=== PATIENT | female | born 1995 | race Caucasian/White ===

== ENCOUNTER 2024-03-25 23:10 | Outpatient (BNV) | payer MEDICAID, SELFPAY | END 2024-04-08 10:27 | PROVIDERS: Admitting Provider Psychiatry & Neurology Psychiatry; Visit Provider Internal Medicine Cardiovascular Disease | DX: Z13.6 Encounter for screening for cardiovascular disorders (principal) | CPT/HCPCS: 93010 ==

== ENCOUNTER 2024-03-25 23:10 | Inpatient (IN) | payer MEDICAID, SELFPAY ==
[2024-03-25 23:40] VITALS: BP 139/86; PULSE 92; RESP 16; TEMP 36.9; O2SAT 98
[2024-03-26] MEDS: Acetaminophen 325 MG TABLET 650 MG PO (00:01)
[2024-03-26] MEDS: hydrOXYzine HCL 25 MG TABLET PO ×3 (00:12→20:45)
[2024-03-26 00:25] VITALS: BMI 30.9
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
[2024-03-26 07:57] VITALS: BP 120/76; PULSE 63; TEMP 36.9; O2SAT 98
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
[2024-03-26] MEDS: Flu Vacc TS2024-25(6mos up)/PF 0.5 ML SYRINGE IM (12:04)
[2024-03-26] MEDS: OLANZapine 5 MG TABLET PO (13:03)
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
[2024-03-26 20:00] VITALS: BP 141/72; PULSE 110; RESP 18; TEMP 36.9; O2SAT 97
[2024-03-26] MEDS: LORazepam 1 MG TABLET PO (23:05)
[2024-03-27 08:31] VITALS: BP 135/75; PULSE 92; RESP 16; TEMP 36.6; O2SAT 97
[2024-03-27 09:01] LABS: Estimated Average Glucose 103 mg/dL; Hemoglobin A1C 119.6058 umol/L; Hemoglobin A1c % 5.2 % (<6.0); Total Hemoglobin (HGBA1C) 3631.6015 umol/L
[2024-03-27 09:17] LABS: Alanine Aminotransferase 14 U/L (0-31); Albumin Level 4.3 g/dL (3.5-5.0); Anion Gap 11 (12-20); Aspartate Amino Transferase 28 U/L (5-31); Bilirubin Total 0.6 mg/dL (0.0-1.0); Blood Urea Nitrogen 9 mg/dL (9-16); Calcium 9.3 mg/dL (8.4-10.2); Carbon Dioxide 26 mmol/L (22-29); Chloride 104 mmol/L (96-108); Cholesterol 144 mg/dL (<200); Estimated Glomerular Filt Rate > 60; Glucose Random 110 mg/dL (60-115); HDL Cholesterol 59 mg/dL (>40); LDL Cholesterol Calculated 65 mg/dL (<100); Potassium 3.8 mmol/L (3.3-5.1); Sodium 137 mmol/L (135-145); Total Protein 7.4 g/dL (6.5-8.0); Triglycerides 103 mg/dL (<150)
[2024-03-27 09:22] LABS: Alkaline Phosphatase 44 U/L (39-117)
[2024-03-27] MEDS: OLANZapine 5 MG TABLET PO (14:33)
[2024-03-27] MEDS: LORazepam 1 MG TABLET PO (14:33)
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
[2024-03-27 20:00] VITALS: BP 142/61; PULSE 90; RESP 18; TEMP 37.6; O2SAT 98
[2024-03-27] MEDS: hydrOXYzine HCL 25 MG TABLET PO (21:58)
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
[2024-03-28 08:00] VITALS: BP 133/80; PULSE 83; TEMP 37.2; O2SAT 96
[2024-03-28] MEDS: hydrOXYzine HCL 25 MG TABLET PO (17:20)
[2024-03-28 19:43] VITALS: BP 153/83; PULSE 86; RESP 18; TEMP 36.6; O2SAT 95
--- NOTE | 2024-03-29 06:04 | PC.NURSE ---
Early in shift room mate change was made for milieu management. Patient refused to go into room stating that she didn't know the person in the room and was terrified to go to sleep in that room. Patient declined offers for PRN medication demanding instead to be placed in one of the group rooms. It was explained to patient that it would be allowed for one night only. She then with help of [facility] took her mattress to Group Room A. She then proceeded to pace in the bustos quietly. Patient requested shower during the night. Once in the shower patient came out into the bustos wearing only a towel and began demanding loudly that she be allowed to have a razor to shave a black hair on my boob. Patient was denied a razor and explanation given. Patient then began stating that her patient rights had been violated. Patient finished shower, dressed and began pacing in the bustos calmly. 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 It was explained to patient that we did not have a book of policies to show her and that nursing supervisor coil springs would be contacted to address her concern. Patient accepted this response and returned to pacing the halls. Patient did not sleep at all during the night. At this time she is in common area with RN having asked to discuss what she referred to as a female issue.
[2024-03-29] MEDS: hydrOXYzine HCL 25 MG TABLET PO (06:57)
[2024-03-29 07:48] VITALS: BP 126/76; PULSE 71; RESP 98; TEMP 36.5; O2SAT 98
[2024-03-29] MEDS: OLANZapine ODT 10 MG TAB.RAPDIS TRANSLINGU ×2 (08:47→20:19)
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
[2024-03-29] MEDS: LORazepam 1 MG TABLET PO ×2 (14:17→20:25)
[2024-03-29] MEDS: OLANZapine 5 MG TABLET PO (19:07)
[2024-03-29 19:54] VITALS: BP 123/81; PULSE 79; RESP 15; TEMP 36.4; O2SAT 97
[2024-03-29] MEDS: lamoTRIgine 25 MG TABLET PO (20:19)
[2024-03-30 08:00] VITALS: BP 127/74; PULSE 79; O2SAT 98
[2024-03-30] MEDS: OLANZapine ODT 10 MG TAB.RAPDIS TRANSLINGU ×2 (08:24→20:09)
[2024-03-30] MEDS: hydrOXYzine HCL 25 MG TABLET PO (08:34)
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
[2024-03-30] MEDS: Magnesium Hydrox/Alum Hydrox 30 ML ORAL.SUSP PO (12:48)
[2024-03-30] MEDS: OLANZapine 5 MG TABLET PO ×2 (13:54→18:35)
[2024-03-30] MEDS: LORazepam 1 MG TABLET PO (18:35)
[2024-03-30 19:50] VITALS: BP 164/96; PULSE 117; RESP 16; TEMP 37; O2SAT 97
[2024-03-30] MEDS: traZODone HCL 50 MG TABLET PO ×2 (20:09→22:25)
[2024-03-30] MEDS: lamoTRIgine 25 MG TABLET PO (20:09)
[2024-03-31] MEDS: OLANZapine 5 MG TABLET PO ×2 (06:23→15:21)
[2024-03-31 08:00] VITALS: BP 124/63; PULSE 94; RESP 16; TEMP 36.4; O2SAT 97
[2024-03-31] MEDS: hydrOXYzine HCL 25 MG TABLET PO (08:27)
[2024-03-31] MEDS: OLANZapine ODT 10 MG TAB.RAPDIS TRANSLINGU ×2 (08:27→20:57)
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
[2024-03-31] MEDS: LORazepam 1 MG TABLET PO ×2 (15:21→20:57)
[2024-03-31 20:00] VITALS: BP 144/90; PULSE 90; TEMP 36.9; O2SAT 96
[2024-03-31] MEDS: lamoTRIgine 25 MG TABLET PO (20:57)
[2024-04-01] MEDS: traZODone HCL 50 MG TABLET PO (01:05)
[2024-04-01] MEDS: Magnesium Hydrox/Alum Hydrox 30 ML ORAL.SUSP PO (05:24)
[2024-04-01] MEDS: LORazepam 1 MG TABLET PO ×3 (06:24→18:40)
[2024-04-01 08:00] VITALS: BP 129/77; PULSE 84; RESP 16; TEMP 36.8; O2SAT 97
[2024-04-01] MEDS: hydrOXYzine HCL 25 MG TABLET PO (08:26)
--- NOTE | 2024-04-01 10:19 | HO.PSYCHPN ---
Subjective Subjective Date of Service: 04/01/24 Reason For Visit: bipolar disorder, unspecified Subjective Notes: Conditional Voluntary Healthcare Proxy: No Guardianship: No Medical Problems Affecting Mental Status: No Interim History: Discussed with pt needing to commit to a course of treatment or needing to ask the court to become involved. I would love the court to be involved I will represent myself. Discussed med regime to help pt move forward, leave the hospital, return to family, work, life. I am unsure. Discussed other options besides current regime. Pt reports previous regimes made her feel not like herself. Discussed how this can be avoided. All of you have done this so far. Discussed Vraylar trial Medication Compliance: Intermittent Side effects from medications: No Attending Groups: No Review of Systems Acute medical concerns: No Medical Review of Systems: unchanged Review of Systems Review of Systems Yes all other systems are reviewed and are negative Mental Status Exam Mental Status Exam Patient Appearance: Appropriate Patient Orientation: Person Level of Consciousness: Alert Patient Behavior: Guarded, Talkative, Cooperative, Suspicious, Anxious, Fearful, Resistive to Care and Good Eye Contact Mood Description: Anxious, Labile and Apprehensive Affect Description: Fearful, Anxious, Labile and Apprehensive Patient Cognition Impaired: No Ability to Follow Directions: Fair Speech Pattern: Spontaneous Speech Memory Description: Remote Impaired Hallucinations: None Delusions: Being Controlled, Paranoid Ideation, Grandiose and Present Perceptual Disturbances: Depersonalization and Derealization Thought Process: Racing, Illogical, Distracted and Rumination Thought Content: positive for Racing, positive for Circumstantial, positive for Perseveration, positive for Tangential and positive for Suicidal Ideation (fears she will be killed) Depressive Symptoms: Increased Anxiety, Crying Spells, Hopelessness, Unhappiness, Increased Fatigue, Loss of Energy and Difficulty Concentrating Abnormal Motor Activity Signs and Symptoms: Restlessness Judgement: Poor Diagnostics Vital Signs (24Hr): Vital Signs - 24 hr 03/31/24 20:00 04/01/24 08:00 Temperature 98.4 F 98.3 F Pulse Rate 90 84 Respiratory Rate 16 Blood Pressure 144/90 H 129/77 Pulse Oximetry 96 97 Oxygen Delivery Method Room Air Room Air BMI result Body Mass Index 30.9 Labs 03/27/24 08:37 Medications Medications Current Medications Acetaminophen (Acetaminophen 325 Mg Tablet) 650 mg PO Q6H PRN PRN Reason: Pain 1-10 Al Hydroxide/Mg Hydroxide (Magnesium Hydrox/Alum Hydrox 30 Ml Oral.Susp) 30 ml PO Q6H PRN PRN Reason: Heartburn/Nausea Last Admin: 04/01/24 05:24 Dose: 30 ml Hydroxyzine HCl (Hydroxyzine Hcl 25 Mg Tablet) 25 mg PO Q6H PRN PRN Reason: Anxiety,mild Last Admin: 04/01/24 08:26 Dose: 25 mg Ibuprofen (Ibuprofen 600 Mg Tablet) 600 mg PO Q6H PRN PRN Reason: Pain, Severe (Pain Scale 7-10) Lamotrigine (Lamotrigine 25 Mg Tablet) 25 mg PO BEDTIME [facility] Last Admin: 03/31/24 20:57 Dose: 25 mg Lorazepam (Lorazepam 1 Mg Tablet) 1 mg PO Q4H PRN PRN Reason: severe anxiety Last Admin: 04/01/24 06:24 Dose: 1 mg Magnesium Hydroxide (Milk Of Magnesia 30 Ml Oral.Susp) 30 ml PO DAILY PRN PRN Reason: Constipation Nicotine (Nicotine 21 Mg Patch.Td24) 21 mg TRANSDERMA DAILY PRN PRN Reason: smoking cessation Nicotine Polacrilex (Nicotine Polacrilex 2 Mg Gum) 4 mg BUCCAL Q2H PRN PRN Reason: Nicotine Cravings Olanzapine (Olanzapine 5 Mg Tablet) 5 mg PO TID PRN PRN Reason: agitation Last Admin: 03/31/24 15:21 Dose: 5 mg Olanzapine (Olanzapine Odt 10 Mg Tab.Rapdis) 10 mg TRANSLINGU BID [facility] Last Admin: 04/01/24 08:27 Dose: Not Given Trazodone HCl (Trazodone Hcl 50 Mg Tablet) 50 mg PO BEDTIME MRX1 PRN PRN Reason: Insomnia Last Admin: 04/01/24 01:05 Dose: 50 mg Allergies Allergies Allergy/AdvReac Type Severity Reaction Status Date / Time No Known Allergies Allergy Verified 03/25/24 21:37 Assessment & Plan Assessment & Plan (1) Bipolar disorder with psychotic features: Status: Acute Code(s): F31.9 - Bipolar disorder, unspecified Plan Bipolar Disorder with Psychosis Admit , CV, 15 minute checks Refuses meds Attempt alliance so regime can be initiated. Encourage milieu Diagnostics as needed Collateral contacts Discharge planning 03/27: Lamictal 25 mg HS Zydis 10 mg bid 1/26 Continue to encourage tx 04/01 Discussed commitment to treatment or asking the court to be involved. Pt considering Vraylar trial Reason for continued inpatient stay Substantial Risk for: rapid decompensation Time Spent With Patient Time: Total time managing care of this patient today ____ minutes.
[2024-04-01 20:00] VITALS: BP 133/74; PULSE 93; RESP 16; TEMP 36.8; O2SAT 97
[2024-04-01] MEDS: lamoTRIgine 25 MG TABLET PO (21:00)
[2024-04-02] MEDS: hydrOXYzine HCL 25 MG TABLET PO (02:47)
[2024-04-02] MEDS: LORazepam 1 MG TABLET PO ×3 (02:51→18:54)
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
[2024-04-02] MEDS: OLANZapine ODT 10 MG TAB.RAPDIS TRANSLINGU ×2 (08:08→20:14)
[2024-04-02 08:13] VITALS: BP 131/81; PULSE 78; TEMP 36.4; O2SAT 99
[2024-04-02 20:00] VITALS: BP 136/71; PULSE 79; TEMP 36.8; O2SAT 98
[2024-04-02] MEDS: Nicotine Polacrilex 2 MG GUM 4 MG BUCCAL (20:22)
[2024-04-03 08:00] VITALS: BP 131/90; PULSE 72; TEMP 36.4; O2SAT 97
[2024-04-03] MEDS: Cariprazine HCl 1.5 MG CAPSULE PO (08:54)
[2024-04-03] MEDS: OLANZapine ODT 10 MG TAB.RAPDIS TRANSLINGU ×2 (08:54→20:01)
[2024-04-03] MEDS: LORazepam 1 MG TABLET PO ×2 (09:25→20:01)
[2024-04-03] MEDS: Nicotine Polacrilex 2 MG GUM 4 MG BUCCAL (10:45)
--- NOTE | 2024-04-03 12:05 | P.PNPSI_ITS ---
Subjective Subjective Date of Service: 04/03/24 Reason For Visit: bipolar disorder, unspecified Subjective Notes: Conditional Voluntary Interim History: Active on unit. social with peers. Patient reports she feels she is improving everyday. pt stated, I feel like I'm on the right track . denies SI/HI/VH/AH. She reports sleeping well. denies any issues at this time. Medication Compliance: Yes Side effects from medications: No Attending Groups: Yes Mental Status Exam Mental Status Exam Patient Appearance: Well Grooomed Patient Orientation: Person, Place, Time and Situation Level of Consciousness: Awake and Alert Patient Behavior: Appropriate, Cooperative and Good Eye Contact Mood Description: Calm Affect Description: Calm Ability to Follow Directions: Good Speech Pattern: Clear and Appropriate Memory Description: Intact Hallucinations: None Delusions: Not Present Thought Process: Intact Thought Content: positive for Intact Judgement: Fair Diagnostics Vital Signs (24Hr): Vital Signs - 24 hr 04/02/24 20:00 Temperature 98.3 F Pulse Rate 79 Blood Pressure 136/71 Pulse Oximetry 98 Oxygen Delivery Method Room Air BMI result Body Mass Index 30.9 Labs 03/27/24 08:37 Medications Medications Current Medications Acetaminophen (Acetaminophen 325 Mg Tablet) 650 mg PO Q6H PRN PRN Reason: Pain 1-10 Al Hydroxide/Mg Hydroxide (Magnesium Hydrox/Alum Hydrox 30 Ml Oral.Susp) 30 ml PO Q6H PRN PRN Reason: Heartburn/Nausea Last Admin: 04/01/24 05:24 Dose: 30 ml Cariprazine (Cariprazine Hcl 1.5 Mg Capsule) 1.5 mg PO DAILY [facility] Last Admin: 04/03/24 08:54 Dose: 1.5 mg Hydroxyzine HCl (Hydroxyzine Hcl 25 Mg Tablet) 25 mg PO Q6H PRN PRN Reason: Anxiety,mild Last Admin: 04/02/24 02:47 Dose: 25 mg Ibuprofen (Ibuprofen 600 Mg Tablet) 600 mg PO Q6H PRN PRN Reason: Pain, Severe (Pain Scale 7-10) Lamotrigine (Lamotrigine 25 Mg Tablet) 25 mg PO BEDTIME [facility] Last Admin: 04/02/24 20:25 Dose: Not Given Lorazepam (Lorazepam 1 Mg Tablet) 1 mg PO Q4H PRN PRN Reason: severe anxiety Last Admin: 04/03/24 09:25 Dose: 1 mg Magnesium Hydroxide (Milk Of Magnesia 30 Ml Oral.Susp) 30 ml PO DAILY PRN PRN Reason: Constipation Nicotine (Nicotine 21 Mg Patch.Td24) 21 mg TRANSDERMA DAILY PRN PRN Reason: smoking cessation Nicotine Polacrilex (Nicotine Polacrilex 2 Mg Gum) 4 mg BUCCAL Q2H PRN PRN Reason: Nicotine Cravings Last Admin: 04/03/24 10:45 Dose: 4 mg Olanzapine (Olanzapine 5 Mg Tablet) 5 mg PO TID PRN PRN Reason: agitation Last Admin: 03/31/24 15:21 Dose: 5 mg Olanzapine (Olanzapine Odt 10 Mg Tab.Rapdis) 10 mg TRANSLINGU BID [facility] Last Admin: 04/03/24 08:54 Dose: 10 mg Trazodone HCl (Trazodone Hcl 50 Mg Tablet) 50 mg PO BEDTIME MRX1 PRN PRN Reason: Insomnia Last Admin: 04/01/24 01:05 Dose: 50 mg Allergies Allergies Allergy/AdvReac Type Severity Reaction Status Date / Time No Known Allergies Allergy Verified 03/25/24 21:37 Assessment & Plan Assessment & Plan (1) Bipolar disorder with psychotic features: Status: Acute Code(s): F31.9 - Bipolar disorder, unspecified Plan Bipolar Disorder with Psychosis Admit , CV, 15 minute checks Refuses meds Attempt alliance so regime can be initiated. Encourage milieu Diagnostics as needed Collateral contacts Discharge planning 03/27: Lamictal 25 mg HS Zydis 10 mg bid 03/29 Continue to encourage tx 04/01 Discussed commitment to treatment or asking the court to be involved. Pt considering Vraylar trial 04/03: continue current tx plan. Patient educated on: diagnosis and medication risk/benefits Reason for continued inpatient stay Substantial Risk for: med/psych decompensation Time Spent With Patient Time: Total time managing care of this patient today _20___ minutes.
[2024-04-03] MEDS: hydrOXYzine HCL 25 MG TABLET PO (14:38)
[2024-04-03] MEDS: OLANZapine 5 MG TABLET PO (18:30)
[2024-04-03 20:00] VITALS: BP 154/63; PULSE 92; RESP 15; TEMP 36.6; O2SAT 96
[2024-04-03] MEDS: lamoTRIgine 25 MG TABLET PO (20:01)
[2024-04-03] MEDS: traZODone HCL 50 MG TABLET PO (20:01)
[2024-04-04 08:12] VITALS: BP 123/70; PULSE 84; RESP 16; TEMP 36.3; O2SAT 96
[2024-04-04] MEDS: OLANZapine ODT 10 MG TAB.RAPDIS TRANSLINGU (08:49)
[2024-04-04] MEDS: Cariprazine HCl 1.5 MG CAPSULE PO (08:49)
--- NOTE | 2024-04-04 08:53 | HO.PSYCHPN ---
Subjective Subjective Date of Service: 04/04/24 Reason For Visit: bipolar disorder, unspecified Subjective Notes: Conditional Voluntary Interim History: Active on unit. social with peers. Patient reports she feels she is improving everyday. Feels that current medication regimen is very helpful. Able to identify being more organized, feeling safe with staff, being able to sleep without feeling scared, trusting her family. No medication side effects. Hopeful for discharge early next week. Medication Compliance: Yes Side effects from medications: No Attending Groups: Yes Review of Systems Acute medical concerns: No Review of Systems Review of Systems unremarkable Mental Status Exam Mental Status Exam Patient Appearance: Well Grooomed Patient Orientation: Person, Place, Time and Situation Level of Consciousness: Awake and Alert Patient Behavior: Appropriate, Cooperative and Good Eye Contact Mood Description: Calm Affect Description: Calm Patient Cognition Impaired: No Ability to Follow Directions: Good Speech Pattern: Clear and Appropriate Memory Description: Intact Hallucinations: None ( denied) Delusions: Not Present ( nothing overt) Thought Process: Intact Thought Content: positive for Intact Judgement: Fair Diagnostics Vital Signs (24Hr): Vital Signs - 24 hr 04/03/24 20:00 04/04/24 08:12 Temperature 97.9 F 97.4 F Pulse Rate 92 84 Respiratory Rate 15 16 Blood Pressure 154/63 H 123/70 Pulse Oximetry 96 96 Oxygen Delivery Method Room Air BMI result Body Mass Index 30.9 Labs 03/27/24 08:37 Medications Medications Current Medications Acetaminophen (Acetaminophen 325 Mg Tablet) 650 mg PO Q6H PRN PRN Reason: Pain 1-10 Al Hydroxide/Mg Hydroxide (Magnesium Hydrox/Alum Hydrox 30 Ml Oral.Susp) 30 ml PO Q6H PRN PRN Reason: Heartburn/Nausea Last Admin: 04/01/24 05:24 Dose: 30 ml Cariprazine (Cariprazine Hcl 1.5 Mg Capsule) 1.5 mg PO DAILY [facility] Last Admin: 04/04/24 08:49 Dose: 1.5 mg Hydroxyzine HCl (Hydroxyzine Hcl 25 Mg Tablet) 25 mg PO Q6H PRN PRN Reason: Anxiety,mild Last Admin: 04/03/24 14:38 Dose: 25 mg Ibuprofen (Ibuprofen 600 Mg Tablet) 600 mg PO Q6H PRN PRN Reason: Pain, Severe (Pain Scale 7-10) Lamotrigine (Lamotrigine 25 Mg Tablet) 25 mg PO BEDTIME [facility] Last Admin: 04/03/24 20:01 Dose: 25 mg Lorazepam (Lorazepam 1 Mg Tablet) 1 mg PO Q4H PRN PRN Reason: severe anxiety Last Admin: 04/03/24 20:01 Dose: 1 mg Magnesium Hydroxide (Milk Of Magnesia 30 Ml Oral.Susp) 30 ml PO DAILY PRN PRN Reason: Constipation Nicotine (Nicotine 21 Mg Patch.Td24) 21 mg TRANSDERMA DAILY PRN PRN Reason: smoking cessation Nicotine Polacrilex (Nicotine Polacrilex 2 Mg Gum) 4 mg BUCCAL Q2H PRN PRN Reason: Nicotine Cravings Last Admin: 04/03/24 10:45 Dose: 4 mg Olanzapine (Olanzapine 5 Mg Tablet) 5 mg PO TID PRN PRN Reason: agitation Last Admin: 04/03/24 18:30 Dose: 5 mg Olanzapine (Olanzapine Odt 10 Mg Tab.Rapdis) 10 mg TRANSLINGU BID [facility] Last Admin: 04/04/24 08:49 Dose: 10 mg Trazodone HCl (Trazodone Hcl 50 Mg Tablet) 50 mg PO BEDTIME MRX1 PRN PRN Reason: Insomnia Last Admin: 04/03/24 20:01 Dose: 50 mg Allergies Allergies Allergy/AdvReac Type Severity Reaction Status Date / Time No Known Allergies Allergy Verified 03/25/24 21:37 Assessment & Plan Assessment & Plan (1) Bipolar disorder with psychotic features: Status: Acute Code(s): F31.9 - Bipolar disorder, unspecified Plan Bipolar Disorder with Psychosis Admit , CV, 15 minute checks Refuses meds Attempt alliance so regime can be initiated. Encourage milieu Diagnostics as needed Collateral contacts Discharge planning 03/27: Lamictal 25 mg HS Zydis 10 mg bid 03/29 Continue to encourage tx 04/01 Discussed commitment to treatment or asking the court to be involved. Pt considering Vraylar trial 04/03: continue current tx plan. 04/04: Continues to show improvement and progressing on current regimen Reason for continued inpatient stay Substantial Risk for: rapid decompensation Time Spent With Patient Time: Total time managing care of this patient today ____ minutes.
[2024-04-04] MEDS: Acetaminophen 325 MG TABLET 650 MG PO (12:45)
[2024-04-04] MEDS: LORazepam 1 MG TABLET PO ×2 (12:45→18:15)
[2024-04-04 20:00] VITALS: BP 131/81; PULSE 87; RESP 15; TEMP 36.6; O2SAT 97
[2024-04-04] MEDS: hydrOXYzine HCL 25 MG TABLET PO (20:08)
[2024-04-05] MEDS: hydrOXYzine HCL 25 MG TABLET PO (06:30)
[2024-04-05 08:14] VITALS: BP 110/61; PULSE 113; RESP 16; TEMP 36.9; O2SAT 96
[2024-04-05] MEDS: Cariprazine HCl 1.5 MG CAPSULE PO (08:59)
[2024-04-05] MEDS: OLANZapine ODT 10 MG TAB.RAPDIS TRANSLINGU ×2 (09:00→20:33)
[2024-04-05] MEDS: LORazepam 1 MG TABLET PO ×2 (09:14→16:12)
--- NOTE | 2024-04-05 09:45 | HO.PSYCHPN ---
Subjective Subjective Date of Service: 04/05/24 Reason For Visit: bipolar disorder, unspecified Interim History: Active on unit. social with peers. Reports things are going well. Happy with current med regimen. Feel organized. Not paranoid and able to trust family and staff. Sleep good. No SI or agitation. No med concerns. Eager for discharge Saturday or Saturday. Medication Compliance: Yes Side effects from medications: No Attending Groups: Yes Review of Systems Acute medical concerns: No Review of Systems Review of Systems unremarkable Mental Status Exam Mental Status Exam Patient Appearance: Well Grooomed Patient Orientation: Person, Place, Time and Situation Level of Consciousness: Awake and Alert Patient Behavior: Appropriate, Cooperative and Good Eye Contact Mood Description: Calm Affect Description: Calm Patient Cognition Impaired: No Ability to Follow Directions: Good Speech Pattern: Clear and Appropriate Memory Description: Intact Judgement: Fair Diagnostics Vital Signs (24Hr): Vital Signs - 24 hr 04/04/24 20:00 04/05/24 08:14 Temperature 97.8 F 98.4 F Pulse Rate 87 113 H Respiratory Rate 15 16 Blood Pressure 131/81 110/61 Pulse Oximetry 97 96 Oxygen Delivery Method Room Air BMI result Body Mass Index 30.9 Labs 03/27/24 08:37 Medications Medications Current Medications Acetaminophen (Acetaminophen 325 Mg Tablet) 650 mg PO Q6H PRN PRN Reason: Pain 1-10 Last Admin: 04/04/24 12:45 Dose: 650 mg Al Hydroxide/Mg Hydroxide (Magnesium Hydrox/Alum Hydrox 30 Ml Oral.Susp) 30 ml PO Q6H PRN PRN Reason: Heartburn/Nausea Last Admin: 04/01/24 05:24 Dose: 30 ml Cariprazine (Cariprazine Hcl 1.5 Mg Capsule) 1.5 mg PO DAILY [facility] Last Admin: 04/05/24 08:59 Dose: 1.5 mg Hydroxyzine HCl (Hydroxyzine Hcl 25 Mg Tablet) 25 mg PO Q6H PRN PRN Reason: Anxiety,mild Last Admin: 04/05/24 06:30 Dose: 25 mg Ibuprofen (Ibuprofen 600 Mg Tablet) 600 mg PO Q6H PRN PRN Reason: Pain, Severe (Pain Scale 7-10) Lamotrigine (Lamotrigine 25 Mg Tablet) 25 mg PO BEDTIME [facility] Last Admin: 04/04/24 22:15 Dose: Not Given Lorazepam (Lorazepam 1 Mg Tablet) 1 mg PO Q4H PRN PRN Reason: severe anxiety Last Admin: 04/05/24 09:14 Dose: 1 mg Magnesium Hydroxide (Milk Of Magnesia 30 Ml Oral.Susp) 30 ml PO DAILY PRN PRN Reason: Constipation Nicotine (Nicotine 21 Mg Patch.Td24) 21 mg TRANSDERMA DAILY PRN PRN Reason: smoking cessation Nicotine Polacrilex (Nicotine Polacrilex 2 Mg Gum) 4 mg BUCCAL Q2H PRN PRN Reason: Nicotine Cravings Last Admin: 04/03/24 10:45 Dose: 4 mg Olanzapine (Olanzapine 5 Mg Tablet) 5 mg PO TID PRN PRN Reason: agitation Last Admin: 04/03/24 18:30 Dose: 5 mg Olanzapine (Olanzapine Odt 10 Mg Tab.Rapdis) 10 mg TRANSLINGU BID [facility] Last Admin: 04/05/24 09:00 Dose: 10 mg Trazodone HCl (Trazodone Hcl 50 Mg Tablet) 50 mg PO BEDTIME MRX1 PRN PRN Reason: Insomnia Last Admin: 04/03/24 20:01 Dose: 50 mg Allergies Allergies Allergy/AdvReac Type Severity Reaction Status Date / Time No Known Allergies Allergy Verified 03/25/24 21:37 Assessment & Plan Assessment & Plan (1) Bipolar disorder with psychotic features: Status: Acute Code(s): F31.9 - Bipolar disorder, unspecified Plan Bipolar Disorder with Psychosis Admit , CV, 15 minute checks Refuses meds Attempt alliance so regime can be initiated. Encourage milieu Diagnostics as needed Collateral contacts Discharge planning 03/27: Lamictal 25 mg HS Zydis 10 mg bid 03/29 Continue to encourage tx 04/01 Discussed commitment to treatment or asking the court to be involved. Pt considering Vraylar trial 04/03: continue current tx plan. 04/04: Continues to show improvement and progressing on current regimen 04/05: no changes. Eager for discharge Saturday or Saturday Reason for continued inpatient stay Substantial Risk for: rapid decompensation Time Spent With Patient Time: Total time managing care of this patient today ____ minutes.
[2024-04-05 19:53] VITALS: BP 128/82; PULSE 96; RESP 15; TEMP 36.9; O2SAT 96
[2024-04-05] MEDS: lamoTRIgine 25 MG TABLET PO (20:33)
[2024-04-06] MEDS: hydrOXYzine HCL 25 MG TABLET PO (06:57)
[2024-04-06 08:00] VITALS: BP 116/59; PULSE 95; TEMP 36.8; O2SAT 98
[2024-04-06] MEDS: Cariprazine HCl 1.5 MG CAPSULE PO (08:36)
[2024-04-06] MEDS: OLANZapine ODT 10 MG TAB.RAPDIS TRANSLINGU ×2 (08:36→20:36)
--- NOTE | 2024-04-06 15:18 | P.PNPSI_ITS ---
Subjective Subjective Date of Service: 04/06/24 Reason For Visit: bipolar disorder, unspecified Subjective Notes: Conditional Voluntary Healthcare Proxy: No Guardianship: No Medical Problems Affecting Mental Status: No Interim History: Angry, caustic. I will leave with my family when they visit tomorrow. I have not had access to deputy general counsel during my stay. Discussed pt's concerns. Today she is dismissive and not wanting to engage, however, expressed her concerns clearly.Dismissed tw after she made her concerns known. I don't want to continue this discussion. Medication Compliance: Intermittent Side effects from medications: No Attending Groups: Intermittent Review of Systems Acute medical concerns: No Review of Systems Review of Systems Reports GI virus sx over the weekend. I wanted to go to ICU but was denied . Mental Status Exam Mental Status Exam Patient Appearance: Well Grooomed Patient Orientation: Person, Place, Time and Situation Level of Consciousness: Awake and Alert Patient Behavior: Appropriate, Cooperative and Good Eye Contact Mood Description: Angry Affect Description: Angry Patient Cognition Impaired: No Ability to Follow Directions: Good Speech Pattern: Clear and Appropriate Memory Description: Intact Hallucinations: None Delusions: Not Present Judgement: Fair Diagnostics Vital Signs (24Hr): Vital Signs - 24 hr 04/05/24 19:53 04/06/24 08:00 Temperature 98.5 F 98.2 F Pulse Rate 96 95 Respiratory Rate 15 Blood Pressure 128/82 116/59 L Pulse Oximetry 96 98 Oxygen Delivery Method Room Air BMI result Body Mass Index 30.9 Labs 03/27/24 08:37 Medications Medications Current Medications Acetaminophen (Acetaminophen 325 Mg Tablet) 650 mg PO Q6H PRN PRN Reason: Pain 1-10 Last Admin: 04/04/24 12:45 Dose: 650 mg Al Hydroxide/Mg Hydroxide (Magnesium Hydrox/Alum Hydrox 30 Ml Oral.Susp) 30 ml PO Q6H PRN PRN Reason: Heartburn/Nausea Last Admin: 04/01/24 05:24 Dose: 30 ml Cariprazine (Cariprazine Hcl 1.5 Mg Capsule) 1.5 mg PO DAILY [facility] Last Admin: 04/06/24 08:36 Dose: 1.5 mg Hydroxyzine HCl (Hydroxyzine Hcl 25 Mg Tablet) 25 mg PO Q6H PRN PRN Reason: Anxiety,mild Last Admin: 04/06/24 06:57 Dose: 25 mg Ibuprofen (Ibuprofen 600 Mg Tablet) 600 mg PO Q6H PRN PRN Reason: Pain, Severe (Pain Scale 7-10) Lamotrigine (Lamotrigine 25 Mg Tablet) 25 mg PO BEDTIME [facility] Last Admin: 04/05/24 20:33 Dose: 25 mg Lorazepam (Lorazepam 1 Mg Tablet) 1 mg PO Q4H PRN PRN Reason: severe anxiety Last Admin: 04/05/24 16:12 Dose: 1 mg Magnesium Hydroxide (Milk Of Magnesia 30 Ml Oral.Susp) 30 ml PO DAILY PRN PRN Reason: Constipation Nicotine (Nicotine 21 Mg Patch.Td24) 21 mg TRANSDERMA DAILY PRN PRN Reason: smoking cessation Nicotine Polacrilex (Nicotine Polacrilex 2 Mg Gum) 4 mg BUCCAL Q2H PRN PRN Reason: Nicotine Cravings Last Admin: 04/03/24 10:45 Dose: 4 mg Olanzapine (Olanzapine 5 Mg Tablet) 5 mg PO TID PRN PRN Reason: agitation Last Admin: 04/03/24 18:30 Dose: 5 mg Olanzapine (Olanzapine Odt 10 Mg Tab.Rapdis) 10 mg TRANSLINGU BID [facility] Last Admin: 04/06/24 08:36 Dose: 10 mg Ondansetron HCl (Ondansetron Odt 4 Mg Tab.Rapdis) 4 mg TRANSLINGU Q6H PRN PRN Reason: Nausea and Vomiting Trazodone HCl (Trazodone Hcl 50 Mg Tablet) 50 mg PO BEDTIME MRX1 PRN PRN Reason: Insomnia Last Admin: 04/03/24 20:01 Dose: 50 mg Allergies Allergies Allergy/AdvReac Type Severity Reaction Status Date / Time No Known Allergies Allergy Verified 03/25/24 21:37 Assessment & Plan Assessment & Plan (1) Bipolar disorder with psychotic features: Status: Acute Code(s): F31.9 - Bipolar disorder, unspecified Plan Bipolar Disorder with Psychosis Admit , CV, 15 minute checks Refuses meds Attempt alliance so regime can be initiated. Encourage milieu Diagnostics as needed Collateral contacts Discharge planning 03/27: Lamictal 25 mg HS Zydis 10 mg bid 03/29 Continue to encourage tx 04/01 Discussed commitment to treatment or asking the court to be involved. Pt considering Vraylar trial 04/03: continue current tx plan. 04/04: Continues to show improvement and progressing on current regimen 2/2: no changes. Eager for discharge Saturday or Thursday 04/06: Continue regime. Will meet with family when they visit on 04/07 to discuss DC planning. Reason for continued inpatient stay Substantial Risk for: rapid decompensation Time Spent With Patient Time: Total time managing care of this patient today ____ minutes.
[2024-04-06] MEDS: LORazepam 1 MG TABLET PO (17:08)
[2024-04-06 20:00] VITALS: BP 133/82; PULSE 85; RESP 16; TEMP 36.4; O2SAT 99
[2024-04-06] MEDS: Melatonin 3 MG TABLET 6 MG PO (20:35)
[2024-04-06] MEDS: lamoTRIgine 25 MG TABLET PO (20:36)
[2024-04-07] MEDS: hydrOXYzine HCL 25 MG TABLET PO (06:29)
[2024-04-07 08:00] VITALS: BP 122/69; PULSE 80; RESP 18; TEMP 37.1; O2SAT 98
[2024-04-07] MEDS: OLANZapine ODT 10 MG TAB.RAPDIS TRANSLINGU ×2 (08:20→20:45)
[2024-04-07] MEDS: Cariprazine HCl 1.5 MG CAPSULE PO (08:20)
[2024-04-07] MEDS: LORazepam 1 MG TABLET PO ×2 (10:01→15:57)
--- NOTE | 2024-04-07 10:28 | P.PNPSI_ITS ---
Subjective Subjective Date of Service: 04/07/24 Reason For Visit: bipolar disorder, unspecified Subjective Notes: Conditional Voluntary and 3 Day Healthcare Proxy: No Guardianship: No Medical Problems Affecting Mental Status: No Interim History: Family meeting with pt and parents. Review of hospitalization, bipolar disorder, medication regime, need for treatment in community. Review of traumatic experience during previous hospitalization and interventions attempted to address this during this stay. Pt will discharge on 04/08/24. Diagnostics in the a.m. for pt to bring with her to her out pt appt. Pt/parents aware pt may call/return if needed. No SI, HI. AH, VH. No sx of acute zoe or psychosis, however, some lability is still present. Family reports they observe pt today at baseline. Medication Compliance: Yes Side effects from medications: No Attending Groups: Intermittent Review of Systems Acute medical concerns: No Mental Status Exam Mental Status Exam Patient Appearance: Well Grooomed Patient Orientation: Person, Place, Time and Situation Level of Consciousness: Awake and Alert Patient Behavior: Appropriate, Cooperative and Good Eye Contact Mood Description: Labile Affect Description: Labile Patient Cognition Impaired: No Ability to Follow Directions: Good Speech Pattern: Clear and Appropriate Memory Description: Intact Hallucinations: None Delusions: Not Present Thought Process: Intact and Goal Oriented Thought Content: positive for Intact, positive for Goal Oriented and positive for Suicidal Ideation (denies) Depressive Symptoms: Thoughts of /Suicide (denies) Judgement: Good Diagnostics Vital Signs (24Hr): Vital Signs - 24 hr 04/06/24 20:00 04/07/24 08:00 Temperature 97.6 F 98.7 F Pulse Rate 85 80 Respiratory Rate 16 18 Blood Pressure 133/82 122/69 Pulse Oximetry 99 98 Oxygen Delivery Method Room Air Room Air BMI result Body Mass Index 30.9 Labs 04/08/24 07:57 04/08/24 07:57 Medications Medications Current Medications Acetaminophen (Acetaminophen 325 Mg Tablet) 650 mg PO Q6H PRN PRN Reason: Pain 1-10 Last Admin: 04/04/24 12:45 Dose: 650 mg Al Hydroxide/Mg Hydroxide (Magnesium Hydrox/Alum Hydrox 30 Ml Oral.Susp) 30 ml PO Q6H PRN PRN Reason: Heartburn/Nausea Last Admin: 04/01/24 05:24 Dose: 30 ml Cariprazine (Cariprazine Hcl 1.5 Mg Capsule) 1.5 mg PO DAILY [facility] Last Admin: 04/07/24 08:20 Dose: 1.5 mg Hydroxyzine HCl (Hydroxyzine Hcl 25 Mg Tablet) 25 mg PO Q6H PRN PRN Reason: Anxiety,mild Last Admin: 04/07/24 06:29 Dose: 25 mg Ibuprofen (Ibuprofen 600 Mg Tablet) 600 mg PO Q6H PRN PRN Reason: Pain, Severe (Pain Scale 7-10) Lamotrigine (Lamotrigine 25 Mg Tablet) 25 mg PO BEDTIME [facility] Last Admin: 04/06/24 20:36 Dose: 25 mg Lorazepam (Lorazepam 1 Mg Tablet) 1 mg PO Q4H PRN PRN Reason: severe anxiety Last Admin: 04/07/24 10:01 Dose: 1 mg Magnesium Hydroxide (Milk Of Magnesia 30 Ml Oral.Susp) 30 ml PO DAILY PRN PRN Reason: Constipation Melatonin (Melatonin 3 Mg Tablet) 6 mg PO BEDTIME PRN PRN Reason: Insomnia Last Admin: 04/06/24 20:35 Dose: 6 mg Nicotine (Nicotine 21 Mg Patch.Td24) 21 mg TRANSDERMA DAILY PRN PRN Reason: smoking cessation Nicotine Polacrilex (Nicotine Polacrilex 2 Mg Gum) 4 mg BUCCAL Q2H PRN PRN Reason: Nicotine Cravings Last Admin: 04/03/24 10:45 Dose: 4 mg Olanzapine (Olanzapine 5 Mg Tablet) 5 mg PO TID PRN PRN Reason: agitation Last Admin: 04/03/24 18:30 Dose: 5 mg Olanzapine (Olanzapine Odt 10 Mg Tab.Rapdis) 10 mg TRANSLINGU BID [facility] Last Admin: 04/07/24 08:20 Dose: 10 mg Ondansetron HCl (Ondansetron Odt 4 Mg Tab.Rapdis) 4 mg TRANSLINGU Q6H PRN PRN Reason: Nausea and Vomiting Trazodone HCl (Trazodone Hcl 50 Mg Tablet) 50 mg PO BEDTIME MRX1 PRN PRN Reason: Insomnia Last Admin: 04/03/24 20:01 Dose: 50 mg Allergies Allergies Allergy/AdvReac Type Severity Reaction Status Date / Time No Known Allergies Allergy Verified 03/25/24 21:37 Assessment & Plan Assessment & Plan (1) Bipolar disorder with psychotic features: Status: Acute Code(s): F31.9 - Bipolar disorder, unspecified Plan Bipolar Disorder with Psychosis Admit , CV, 15 minute checks Refuses meds Attempt alliance so regime can be initiated. Encourage milieu Diagnostics as needed Collateral contacts Discharge planning 03/27: Lamictal 25 mg HS Zydis 10 mg bid 03/29 Continue to encourage tx 04/01 Discussed commitment to treatment or asking the court to be involved. Pt considering Vraylar trial 04/03: continue current tx plan. 04/04: Continues to show improvement and progressing on current regimen 04/05: no changes. Eager for discharge Saturday or Saturday04/07/24: Increase Vraylar to 3 mg a.m. Discharge 04/08/24. Reason for continued inpatient stay Substantial Risk for: stable for discharge Time Spent With Patient Time: Total time managing care of this patient today ____ minutes.
[2024-04-07 20:00] VITALS: BP 157/95; PULSE 71; TEMP 36.7; O2SAT 99
[2024-04-07] MEDS: lamoTRIgine 25 MG TABLET PO (20:45)
[2024-04-07] MEDS: Melatonin 3 MG TABLET 6 MG PO (21:04)
[2024-04-08] MEDS: hydrOXYzine HCL 25 MG TABLET PO (03:21)
[2024-04-08 07:56] VITALS: BP 132/80; PULSE 80; RESP 18; TEMP 36.8; O2SAT 98
[2024-04-08] MEDS: OLANZapine ODT 10 MG TAB.RAPDIS TRANSLINGU (07:58)
[2024-04-08] MEDS: Cariprazine HCl 3 MG CAPSULE PO (07:58)
[2024-04-08 08:25] LABS: MANUAL DIFF FLAG NO
[2024-04-08 08:27] LABS: Basophils Percent Auto 0.5 % (0-2); Eosinophils Absolute Auto 0.1 X10*3/uL (0.0-0.4); Eosinophils Percent Auto 1.4 % (0-4); Hematocrit 38.9 % (37.0-47.0); Hemoglobin 13.4 g/dl (12.0-16.0); Imm Gran Abs Auto 0.02 X10*3/uL (0.00-0.03); Imm Gran Pct Auto 0.4 % (0.0-0.4); Lymphocytes Absolute Auto 1.9 X10*3/uL (1.2-4.9); Lymphocytes Percent Auto 34.5 % (20-40); Mean Corpuscular HGB Conc 34.4 g/dl (31.0-35.0); Mean Corpuscular Hemoglobin 30.7 pg (27.0-33.0); Mean Corpuscular Volume 89.2 fL (80.0-98.0); Mean Platelet Volume 10.3 fL (9.4-12.3); Monocytes Absolute Auto 0.5 X10*3/uL (0.1-1.2); Monocytes Percent Auto 8.5 % (2-11); Neutrophils Percent Auto 54.7 % (45-73); Platelet Count 232 X10*3/uL (160-400); Red Blood Count 4.36 X10*6/uL (4.20-5.50); White Blood Count 5.6 X10*3/uL (4.8-10.8)
[2024-04-08 08:59] LABS: Alanine Aminotransferase 27 U/L (0-31); Albumin Level 4.1 g/dL (3.5-5.0); Alkaline Phosphatase 44 U/L (39-117); Anion Gap 12 (12-20); Aspartate Amino Transferase 24 U/L (5-31); Bilirubin Total 0.3 mg/dL (0.0-1.0); Blood Urea Nitrogen 9 mg/dL (9-16); Calcium 8.9 mg/dL (8.4-10.2); Carbon Dioxide 25 mmol/L (22-29); Chloride 108 mmol/L (96-108); Estimated Glomerular Filt Rate > 60; Glucose Random 86 mg/dL (60-115); Potassium 4.5 mmol/L (3.3-5.1); Sodium 140 mmol/L (135-145); Total Protein 7.1 g/dL (6.5-8.0)
[2024-04-08 09:15] LABS: TSH reflex Free T4 1.02 uIU/mL (0.32-4.0); Thyroid Stimulating Hormone 1.02 uIU/mL (0.32-4.0)
--- NOTE | 2024-04-08 10:27 | ECG_ITS ---
Test Reason : check qtc Blood Pressure : */* mmHG Vent. Rate : 64 BPM Atrial Rate : 64 BPM P-R Int : 124 ms QRS Dur : 88 ms QT Int : 420 ms P-R-T Axes : 42 48 55 degrees QTcB Int : 433 ms Normal sinus rhythm with sinus arrhythmia Normal ECG No previous ECGs available Referred By: Bebe Beltrán Electronically Signed By: Gordy Lock
--- NOTE | 2024-04-08 16:59 | P.DS_ITS ---
DS: Providers Provider Date of admission: 03/25/24 23:10 Primary care physician: Unknown Physician Consults: 03/25/24 21:38 Consult to Hospitalist Routine Comment: Consulting Provider: [facility] [place] [facility] Reason For Exam: admission physical DS: Diagnosis Discharge Diagnosis (1) Bipolar disorder with psychotic features: Status: Acute DS: Medications Discharge Medications Home Medications: Previous Rx's ?Medication ?Instructions ?Recorded cariprazine 3 mg capsule (Vraylar) 3 mg PO DAILY #30 caps 04/08/24 lamotrigine 25 mg tablet (Lamictal) 25 mg PO DAILY 30 days #30 tabs 04/08/24 melatonin 3 mg capsule 3 mg PO BEDTIME PRN sleep #30 caps 04/08/24 olanzapine 10 mg tablet 10 mg PO BID #60 tabs 04/08/24 olanzapine 5 mg tablet 5 mg PO TID PRN mood lability, 04/08/24 anxiety, agitation #30 tabs Data Data Completed and Pending Completed studies during hospitalization [Text1]: 04/08/24 07:57 WBC 5.6 RBC 4.36 Hgb 13.4 Hct 38.9 MCV 89.2 MCH 30.7 MCHC 34.4 RDW 12.0 Plt Count 232 MPV 10.3 Immature Gran % (Auto) 0.4 Neut % (Auto) 54.7 Lymph % (Auto) 34.5 [place] % (Auto) 8.5 Eos % (Auto) 1.4 Baso % (Auto) 0.5 Lymph # (Auto) 1.9 [place] # (Auto) 0.5 Eos # (Auto) 0.1 Baso # (Auto) 0.0 Abs Immat Gran (auto) 0.02 Absolute Neuts (auto) 3.0 Absolute Nucleated RBC 0.000 Nucleated RBC % (auto) 0.0 Sodium 140 Potassium 4.5 Chloride 108 Carbon Dioxide 25 Anion Gap 12 BUN 9 Creatinine 0.72 Estim Creat Clear Calc 101.0 Estimated GFR > 60 Random Glucose 86 Calcium 8.9 Total Bilirubin 0.3 AST 24 ALT 27 Alkaline Phosphatase 44 Total Protein 7.1 Albumin 4.1 TSH 1.02 DS: Summary Time Spent with Patient Time attestation: Total time managing care of this patient today ____ minutes. Discharge Plan Discharge Anticipated Discharge Date/Time: 04/08/24 12:00 Patient Disposition: Home, Self-Care Discharge Diagnosis: Bipolar Disorder with Psychotic Features Referrals: [facility]- Therapy and Medication Management [Other] - 1 Week (Please call if you have not heard about an appointment date and time within 1 week ) Physician,Paul J [Primary Care Provider] - (Because you did not sign a release of information for your PCP, your records were not forwarded. If you would like them sent in future, please contact the hospital's medical records department. ) Discharge Medications: New lamotrigine [Lamictal] 25 mg tablet 25 mg PO DAILY 30 Days Qty: 30 0RF melatonin 3 mg capsule 3 mg PO BEDTIME PRN (Reason: sleep) Qty: 30 0RF olanzapine 10 mg tablet 10 mg PO BID Qty: 60 0RF olanzapine 5 mg tablet 5 mg PO TID PRN (Reason: mood lability, anxiety, agitation) Qty: 30 0RF Vraylar 3 mg capsule 3 mg PO DAILY Qty: 30 0RF Discontinued propranolol 10 mg tablet 10 mg PO DAILY PRN (Reason: Anxiety) Discharge Orders: Discharge Order (Routine); Ordered 04/08/24 Ordered By: Bebe Beltrán Diet: Advance to usual diet Activity on Discharge: As tolerated Stand Alone Forms: Patient Portal Discharge page, Community Support Print Language: Bengali Care Plan Goals: Mood and Behavioral Stabilization Health Concerns: Mood and Behavioral Stabilization Plan of Treatment: Attend scheduled appointments Take medications as directed Medicines have been sent to [facility] in [place] due to your insurance coverage Medication Appt. [address] [phone] April 20, 2024 9am. Please arrive by 8:30am Siria Mccarthy is the provider you will see. Therapy Appt. You are on the wait list with the [facility] The clinic will call you to schedule your appt The clinical assistant is looking into the schedule to make your appt. Assessment: No SI,HI,AH,VH Symptoms resolving Pt and parents are in agreement regarding discharge plan Discharge Date/Time: 04/08/24 10:59
== END 2024-04-08 10:59 | disposition home or self-care (01) | DRG 753 ==
PROVIDERS: Admitting Provider Psychiatry & Neurology Psychiatry; Visit Provider Clinical Nurse Specialist Psychiatric/Mental Health, Adult
DX: F31.9 Bipolar disorder, unspecified (principal); F29 Unspecified psychosis not due to a substance or known physiological condition; Z23 Encounter for immunization; Z79.899 Other long term (current) drug therapy
CPT/HCPCS: 36415; 80053; 80061; 83036; 84443; 85025; 90656; 93005

== ENCOUNTER → 2024-03-25 23:10 | Outpatient (BNV) | payer SELFPAY | PROVIDERS: Admitting Provider Psychiatry & Neurology Psychiatry; Visit Provider Clinical Nurse Specialist Psychiatric/Mental Health, Adult | DX: F31.9 Bipolar disorder, unspecified (principal) | CPT/HCPCS: 90792; 99232 ==

== ENCOUNTER → 2024-03-25 23:10 | Outpatient (BNV) | payer SELFPAY | PROVIDERS: Admitting Provider Psychiatry & Neurology Psychiatry; Visit Provider Student in an Organized Health Care Education/Training Program | DX: Z00.8 Encounter for other general examination (principal) | CPT/HCPCS: 99222 ==